=== PATIENT | female | born 1970 | race Hispanic/Latino ===

== ENCOUNTER 2018-11-27 11:36 | Emergency (ER) | payer BC ==
[~2018-11-27] VITALS: Ht 167.6 cm; Wt 117.9 kg
[~2018-11-27 11:36] MED LIST: ASPIRIN EC81 MG PO; BC PILL; SINGULAIR10 MG PO; Z.0.TOPROL XL50 MG PO; [UNRECOGNIZED DRUG - OTHER] PO
[2018-11-27] MEDS ORDERED: KETOROLAC TROMETHAMINE 30 MG/ML VIAL IV STA (11:43)
[2018-11-27] MEDS ORDERED: SODIUM CHLORIDE 0.9% 1000ML 1,000 ML IV STA (11:43)
[2018-11-27] MEDS ORDERED: METOCLOPRAMIDE HCL 10 MG/2ML VIAL IV ONE (11:45)
[2018-11-27] MEDS ORDERED: DIPHENHYDRAMINE HCL INJ 50 MG/ML VIAL IV ONE (12:30)
[2018-11-27 12:35] LABS: BASOPHILS # (AUTO) 0.1 (0.0-0.1); BASOPHILS % 0.5 % (0.0-1.0); EOSINOPHILS # (AUTO) 0.2 (0.0-0.4); EOSINOPHILS % 1.2 % (0.0-6.0); HEMATOCRIT 43.1 % (34.2-44.1); HEMOGLOBIN 13.7 g/dL (12.0-16.0); LYMPHOCYTES # (AUTO) 2.8 (1.0-3.2); LYMPHOCYTES % 21.9 % (18.0-39.1); MEAN CORPUSCULAR HEMOGLOBIN 27.3 pg (28-32); MEAN CORPUSCULAR HGB CONC 31.8 g/dL (31-35); MONOCYTES # (AUTO) 0.7 (0.2-0.8); MONOCYTES % 5.2 % (4.4-11.3); NEUTROPHILS # (AUTO) 8.9 (2.1-6.9); NEUTROPHILS % 70.7 % (38.7-80.0); PLATELET COUNT 361 x10e3/uL (140-360); RED BLOOD COUNT 5.01 x10e6/uL (3.6-5.1); RED CELL DISTRIBUTION WIDTH 13.4 % (11.7-14.4)
[2018-11-27 12:36] LABS: BILIRUBIN,URINE NEGATIVE (NEGATIVE); CLARITY,URINE CLEAR (CLEAR); COLOR,URINE YELLOW (YELLOW); KETONES,URINE NEGATIVE (NEGATIVE); LEUKOCYTE ESTERASE ,URINE TRACE (NEGATIVE); NITRITE,URINE NEGATIVE (NEGATIVE); PROTEIN,URINE DIPSTICK NEGATIVE (NEGATIVE); URINE UROBILINOGEN 0.2 mg/dL (0.2 - 1)
[2018-11-27 12:46] LABS: ALANINE AMINOTRANSFERASE 15 IU/L (0-55); ALBUMIN 3.3 g/dL (3.5-5.0); ALBUMIN/GLOBULIN RATIO 0.8 (0.8-2.0); ALKALINE PHOSPHATASE 52 IU/L (40-150); BLOOD UREA NITROGEN 17 mg/dL (7-26); BUN/CREATININE RATIO 22 (6-25); CALCIUM 9.2 mg/dL (8.4-10.2); CARBON DIOXIDE 22 mmol/L (22-29); CHLORIDE 103 mmol/L (98-107); CREATININE, SERUM 0.77 mg/dL (0.57-1.11); EST GLOMERULAR FILTRATION RATE > 60 ML/MIN (60-); GLUCOSE 96 mg/dL (74-118); SODIUM 136 mmol/L (136-145)
--- NOTE | 2018-11-27 13:15 | Diagnostic Imaging Report ---
Examination: CT BRAIN WO CONTRAST History:Headache. Dizziness. Nausea Comparison studies:Head CT performed November 28, 2010 Technique: Axial images were obtained from the skull base to the vertex. Coronal and sagittal images reconstructed from the axial data. Dose modulation, iterative reconstruction, and/or weight based adjustment of the mA/kV was utilized to reduce the radiation dose to as low as reasonably achievable. Intravenous contrast: None Findings: Scalp: No abnormalities. Bones: No fractures, blastic or lytic lesions. Brain sulci: Appropriate for age. Ventricles: Normal in size and configuration. No hydrocephalus. Extra-axial space: No abnormalities. Parenchyma: No abnormal densities. No masses, hemorrhage, or acute or chronic cortical based vascular insults.. Sellar/suprasellar region: No abnormalities. Craniocervical junction: Patent foramen magnum. No Chiari one malformation. Incidental findings: None. Impression: No new or acute intracranial abnormalities when compared to prior head CT performed November 28, 2010. Signed by: Dr. Leslie Kilgore M.D. on 11/27/2018 1:12 PM
[2018-11-27 13:34] LABS: BACTERIA,URINE MODERATE /HPF; EPITHELIAL CELLS,URINE MODERATE /LPF; RBC,URINE 21-50 /HPF (0-5)
[2018-11-27 14:07] VITALS: BP 115/61
== END 2018-11-27 14:18 | disposition home or self-care (01) ==
LOC: ER 11:36
DX: G44.211 Episodic tension-type headache, intractable (principal); G44.031 Episodic paroxysmal hemicrania, intractable; G43.909 Migraine, unspecified, not intractable, without status migrainosus; N39.0 Urinary tract infection, site not specified
CPT/HCPCS: 36415; 70450; 80053; 81001; 81025; 85025; 87086; 87186; 93005; J1200; J1885; J2765; J7030; 99283

== ENCOUNTER → 2019-03-03 | Outpatient (CLI) | payer BC ==
--- NOTE | 2019-03-03 16:14 | Diagnostic Imaging Report ---
TECHNIQUE: Magnetic resonance imaging of the left KNEE was performed WITHOUT injected contrast. HISTORY: knee pain COMPARISON: None available. FINDINGS: LIGAMENTS AND TENDONS: ACL: Intact PCL: Intact Collateral ligaments: Intact Iliotibial band: Unremarkable Popliteal tendon: Intact Extensor mechanism: Intact JOINT: Menisci: Medial: Degeneration without discrete tear Lateral: Degeneration without discrete tear Articular Cartilage: Medial Compartment: Diffuse partial-thickness cartilage loss Lateral Compartment: Diffuse partial-thickness cartilage loss Patellofemoral Compartment: Diffuse partial-thickness cartilage loss with full-thickness erosion of the lateral facet. Joint Fluid: Small joint effusion. BONE: No acute fracture. SOFT TISSUES: Otherwise, unremarkable. IMPRESSION: Patellofemoral compartment predominant cartilage loss. 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 Signed by: Dr. Iker Thompson M.D. on 03/03/2019 4:11 PM
== END ==
LOC: MRI 14:43
PROVIDERS: ATTEND Specialist
DX: S83.262A Peripheral tear of lateral meniscus, current injury, left knee, initial encounter (principal)

== ENCOUNTER 2019-09-19 08:59 | Outpatient (RCR) | payer BC | END 2019-09-21 | LOC: PT 08:59 | PROVIDERS: ATTEND Specialist | DX: S33.5XXA Sprain of ligaments of lumbar spine, initial encounter (principal); M16.11 Unilateral primary osteoarthritis, right hip; M62.81 Muscle weakness (generalized); M54.5 Low back pain; M25.551 Pain in right hip; M25.651 Stiffness of right hip, not elsewhere classified | CPT/HCPCS: 97139 ==

== ENCOUNTER → 2019-10-21 | Outpatient (RCR) | payer BC | LOC: PT 09-23 09:06 | PROVIDERS: ATTEND Specialist | DX: S33.5XXA Sprain of ligaments of lumbar spine, initial encounter (principal); M16.11 Unilateral primary osteoarthritis, right hip | CPT/HCPCS: 97139 ==

== ENCOUNTER 2019-11-05 14:58 | Outpatient (RCR) | payer BC | END 2019-11-21 | LOC: PT 14:58 | PROVIDERS: ATTEND Specialist | DX: S33.5XXA Sprain of ligaments of lumbar spine, initial encounter (principal); M16.11 Unilateral primary osteoarthritis, right hip; M25.551 Pain in right hip; M25.651 Stiffness of right hip, not elsewhere classified; M62.81 Muscle weakness (generalized); M54.5 Low back pain | CPT/HCPCS: 97139 ==